=== PATIENT | male | born 1950 | race Caucasian/White ===

== ENCOUNTER 2020-04-25 09:27 | Outpatient (CLI) | payer MEDICARE ==
--- NOTE | 2020-04-25 09:41 | RAD ---
LEFT WRIST 3 VIEWS: HISTORY: Left wrist pain, injury FINDINGS: There is a minimally displaced fracture involving the waist of the scaphoid bone.
== END 2020-04-25 09:28 | disposition home or self-care (01) ==
LOC: NAV RAD 09:27
PROVIDERS: ATTEND Family Medicine
DX: M25.532 Pain in left wrist (principal); W19.XXXA Unspecified fall, initial encounter